=== PATIENT | female | born 1980 | race Caucasian/White ===

== ENCOUNTER 2017-02-11 03:46 | Emergency (ER) | payer OTHER ==
[2017-02-11 03:57] VITALS: BP 116/69; BMI 29.7
[2017-02-11] MEDS ORDERED: TORADOL 60 MG VIAL IM ONE (04:44)
--- NOTE | 2017-02-11 04:44 | DR.GENAD ---
HPI - PCP Primary Care Physician: Timbo RICKS - Complaint/Symptoms Chief Complaint:: SEVERE KIDNEY PAIN PT STATES," I HAVE A HISTORY OF KIDNEY STONES." Self Treatment fo Chief Complaint: TYLENOL AT 2AM - Source History Provided: Patient - Mode of Arrival Mode of Arrival: Ambulatory - Timing Onset of Chief Complaint: 02/10/17 PMH - PMH Past Medical History: Yes Past Medical History: Anxiety, Depression, Hypertension, Kidney Stones, Renal Disease Past Surgical History: Yes Surgical History: 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 Past Surgical History Comment: STENET PLACED IN KIDNEY, I AND D CYST REMOVED OFF OF OVARIES - Family History History of Family Medical Conditions: Yes Family Medical History: Diabetes Mellitus, Cancer, [place], Coronary Artery Disease, Heart Failure, Sudden Cardiac , Hypertension - Social History Does patient currently use any type of tobacco product: Yes Have you used tobacco products in the last 12 months: Yes Type of Tobacco Use: Cigarettes How many years tobacco product used: 22 Does any household member use tobacco: No Alcohol Use: None Do you use any recreational Drugs:: No Lives With: Family Lives Where: Home - infectious screening In the last 2 months have you had wt loss of >10#?: NO Have you had fever, night sweats or hemotysis?: No Have you traveled outside the country in the last 6 months?: No Isolation: Standard ROS - Review of Systems Constitutional: No Symptoms Reported Eyes: No Symptoms Reported, Eye Pain Respiratoy: No Symptoms Reported Cardiovascular: No Symptoms Reported Gastrointestinal/Abdominal: No Symptoms Reported Genitourinary: No Symptoms Reported Neurological: No Symptoms Reported Musculoskeletal: No Symptoms Reported Integumentary: No Symptoms Reported Hematologic/Lymphatic: No Symptoms Reported Endocrine: No Symptoms Reported Psychiatric: No Symptoms Reported All Other Systems: Reviewed and Negative PE - Vital Signs Vitals: Temperature 99.2 F Pulse Rate 88 Respiratory Rate 20 Blood Pressure [Right Arm] 103/60 Blood Pressure [Left Arm] 102/68 Blood Pressure [Standing] 94/64 Blood Pressure [Sitting] 85/65 Blood Pressure [Lying] 104/60 Blood Pressure 116/69 O2 Sat by Pulse Oximetry 97 - General Limitations: No Limitations General Appearance: Alert, In No Apparent Distress - Head Head Exam: Normal Inspection, Atraumatic - Eyes Eye exam: Normal Appearance, PERRL, EOMI - ENT ENT Exam: Normal Exam External Ear Exam: Normal External Inspection TM/Canal Exam: Bilateral Normal Nose Exam: Normal Nose Exam, Nasal Deviation Throat Exam: Normal Inspection - Neck Neck Exam: Normal Inspection - Chest Chest Inspection: Normal Inspection - Respiratory Respiratory Exam: Normal Lung Sounds Bilat Respiratory Exam: Bilateral Clear to Auscultation - Cardiovascular Cardiovascular Exam: Regular Rate - Abdominal Exam Abdominal Exam: Normal Inspection Abdominal Tenderness: negative: RUQ, RLQ, LUQ, LLQ, Epigastrium, Suprapubic, Diffuse, Mild, Moderate, Severe, Other Course - Reevaluation 1st: Improved ROR - Labs Reviewed Laboratory Results Reviewed?: Yes (Urine:wbc 5010, 3+leuk) - Diagnosis Discharge Problem: UTI (urinary tract infection) Qualifiers: Urinary tract infection type: acute cystitis Hematuria presence: with hematuria Qualified Code(s): N30.01 - Acute cystitis with hematuria - Discharge Plan Condition: Stable - Follow ups/Referrals Follow ups/Referrals: JOCELINE RICKS [Primary Care Provider] - 3 days - Instructions
[2017-02-11] MEDS ORDERED: TORADOL 60 MG VIAL ONE (04:52)
[2017-02-11 05:23] LABS: BILIRUBIN,URINE NEGATIVE (NEGATIVE); BLOOD/HEMOGLOBIN,URINE NEGATIVE (NEGATIVE); GLUCOSE, URINE NEGATIVE (NEGATIVE); KETONES,URINE NEGATIVE (NEGATIVE); LEUKOCYTE ESTERASE ,URINE 3+ (NEGATIVE); NITRITES,URINE NEGATIVE (NEGATIVE); PH,URINE 6.5 (5.0 - 8.0); PROTEIN,URINE 1+ (NEGATIVE); UROBILINOGEN,URINE NORMAL (NORMAL)
[2017-02-11 05:35] LABS: APPEARANCE,URINE SLIGHTLY HAZY (CLEAR); BACTERIA,URINE TRACE /HPF (NEGATIVE); COLOR,URINE YELLOW (YELLOW); RBC,URINE 0-3 /HPF (NEGATIVE); SQUAMOUS EPITHELIAL CELL,UR FEW /HPF (NEGATIVE)
[2017-02-11 05:36] LABS: CALCIUM OXALATE CRYSTALS,UR MANY /HPF (NEGATIVE)
== END 2017-02-11 06:06 | disposition home or self-care (01) ==
LOC: ER 04:02
DX: N30.01 Acute cystitis with hematuria (principal); B96.4 Proteus (mirabilis) (morganii) as the cause of diseases classified elsewhere
CPT/HCPCS: 81001; 87086; 87088; 87186; 96372; 99282; J1885

== ENCOUNTER 2017-02-17 23:13 | Emergency (ER) | payer OTHER ==
[2017-02-17 23:17] VITALS: BP 129/83; BMI 25.0
--- NOTE | 2017-02-18 | DR.RASH ---
HPI - Time Seen Time seen: 23:58 - PCP Primary Care Physician: OMID - Complaint Chief Complaint:: RASH , ITCHING FOR 3 DAYS Chief Complaint Doctors Comments: Patient complains of diffuse rash with itching for the past three days. States she has been taking Benadryl and it calms it down for a few minutes and then it comes right back. states she has not had anything new recently. She is a patient of Dr. Soler and is taking medicines for hypertension. She denies cold, cough, fever or chills. Onset of Chief Complaint: 02/14/17 Self Treatment fo Chief Complaint: BENADRYL - Reviewed Nurses Notes Review: Yes - Source History Provided: Patient - Mode of Arrival Mode of Arrival: Ambulatory - Location Location: Bilateral, Face, Chest, Back, arms, Legs, Hands, Feet - Quality Quality: Red, Pruritic - Context Circumstances: Spontaneous onset History of: None - Severity Pain Severity: Moderate - Associated signs and symptoms Associated signs and symptoms: None PMH - PMH Past Medical History: Yes Past Medical History: Anxiety, Depression, Hypertension, Kidney Stones, Renal Disease Past Surgical History: Yes Surgical History: 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 - Family History History of Family Medical Conditions: Yes Family Medical History: Diabetes Mellitus, Cancer, [place], Coronary Artery Disease, Heart Failure, Sudden Cardiac , Hypertension - Social History Type of Tobacco Use: Cigarettes Alcohol Use: None Do you use any recreational Drugs:: No Lives With: Family Lives Where: Home - infectious screening Have you traveled outside the country in the last 6 months?: No Isolation: Standard ROS - Review of Systems Constitutional: No Symptoms Reported. negative: See HPI, Chills, Diaphoresis, Fever, Malaise, Weakness, Irritable, Fatigue, Loss of Appetite, Other Eyes: No Symptoms Reported ENTM: No Symptoms Reported Respiratoy: No Symptoms Reported Cardiovascular: No Symptoms Reported. negative: See HPI, Chest Pain, Edema, Palpitations, Syncope, Cyanosis, Skin Mottling, Other Gastrointestinal/Abdominal: No Symptoms Reported Genitourinary: No Symptoms Reported Neurological: No Symptoms Reported. negative: See HPI, Anxiety, Depressed, Emotional Problems, Headache, Numbness, Paresthesia, Pre-existing Deficit, Seizure, Tingling, Tremors, Weakness, Dizziness, Problems Walking, Speech Problem, Other Musculoskeletal: No Symptoms Reported, Back (diffuse erythematous macular rash) , Arm, Leg Integumentary: Rash Hematologic/Lymphatic: No Symptoms Reported Endocrine: No Symptoms Reported Psychiatric: No Symptoms Reported PE - Vital Signs Vitals: Temperature 98.1 F Pulse Rate 100 Respiratory Rate 18 Blood Pressure [Right Arm] 103/60 Blood Pressure [Left Arm] 102/68 Blood Pressure [Standing] 94/64 Blood Pressure [Sitting] 85/65 Blood Pressure [Lying] 104/60 Blood Pressure 129/83 O2 Sat by Pulse Oximetry 95 - General Limitations: No Limitations General Appearance: In Distress (moderate distress; constantly scratching her arms.) - Head Head Exam: Normal Inspection, Atraumatic, Normocephalic - Eyes Eye exam: Normal Appearance, PERRL, EOMI. negative: Scleral Icterus, Conjunctival Injection, Nystagmus, Miosis, Mydrasis, Periorbital Swelling, Periorbital Tenderness, Other - ENT ENT Exam: Normal Exam, Normal Oropharynx, Normal External Ear Exam, Mucous Membranes Moist, TM's Normal Bilaterally External Ear Exam: Normal External Inspection TM/Canal Exam: Bilateral Normal Nasal Speculum Exam: Bilateral Normal Mouth Exam: Normal Inspection Teeth Exam: Normal Inspection Throat Exam: Normal Inspection - Neck Neck Exam: Normal Inspection, Full ROM, Trachea Midline. negative: Tenderness, Meningismus, Lymphadenopathy, Thyromegaly, Other - Chest Chest Inspection: Normal Inspection, Symmetric Chest Wall Rise - Respiratory Respiratory Exam: Normal Lung Sounds Bilat Respiratory Exam: Bilateral Clear to Auscultation - Cardiovascular Cardiovascular Exam: Regular Rate, Normal Rhythm, Normal Heart Sounds - Abdominal Exam Abdominal Exam: Normal Inspection, Normal Bowel Sounds, Soft Abdominal Tenderness: negative: RUQ, RLQ, LUQ, LLQ, Epigastrium, Suprapubic, Diffuse, Mild, Moderate, Severe, Other - Extremities Extremities Exam: Normal Inspection, Full ROM, Normal Capillary Refill. negative: Tenderness, Edema, Joint Swelling, Calf Tenderness, Other - Back Back Exam: Normal Inspection, Full ROM. negative: Tenderness, (R) CVA Tenderness, (L) CVA Tenderness, Muscle Spasm, Paraspinal Tenderness, Vertebral Tenderness, Rashes, (R) Sciatic Notch Tenderness, (L) Sciatic Notch Tendern, (R ) Straight Leg Raise, (L) Straight Leg Raise, Other - Neurologic Neurological Exam: Alert, Oriented X3, CN II-XII Intact, Normal Gait, Reflexes Normal - Psychiatric Psychiatric Exam: Normal Affect, Normal Mood - Skin Skin Exam: Warm, Dry, Intact, Normal Color, Rash (macular erythematous pruitic rash) Type of Lesion: Rash Distribution: Generalized Description: Erythematous, Macular ROR - Labs Reviewed Laboratory Results Reviewed?: Yes (all lab results reviewed and discussed with patient) Result Diagrams: 02/18/17 00:15 02/18/17 00:15 Laboratory: WBC 8.1 X10^3/uL (3.6-10.0) 02/18/17 00:15 RBC 4.21 X10^6/uL (3.5-5.4) 02/18/17 00:15 Hgb 12.4 g/dL (12.0-16.0) 02/18/17 00:15 Hct 37.3 % (36.0-47.0) 02/18/17 00:15 MCV 88.5 fL (80.0-100.0) 02/18/17 00:15 MCH 29.4 pg (27.0-34.0) 02/18/17 00:15 MCHC 33.2 g/dL (33.0-35.0) 02/18/17 00:15 RDW 13.4 % (11.6-16.5) 02/18/17 00:15 Plt Count 303 X10^3/uL (150.0-450.0) 02/18/17 00:15 MPV 7.1 fL (7.4-11.0) L 02/18/17 00:15 Neut % 56.6 % (42.0-75.0) 02/18/17 00:15 Lymph % 31.9 % (21.0-51.0) 02/18/17 00:15 [place] % 9.1 % (0.0-13.0) 02/18/17 00:15 Eos % 1.3 % (0.9-2.9) 02/18/17 00:15 Baso % 1.1 % (0.2-1.0) H 02/18/17 00:15 Neut # 4.6 x10^3/uL (2.2-4.8) 02/18/17 00:15 Lymph # 2.6 X10^3/uL (1.3-2.9) 02/18/17 00:15 [place] # 0.7 x10^3/uL (0.3-0.8) 02/18/17 00:15 Eos # 0.1 x10^3/uL (0.0-0.2) 02/18/17 00:15 Baso # 0.1 X10^3/uL (0.0-0.1) 02/18/17 00:15 Absolute Nucleated RBC 0.1 /100WBC 02/18/17 00:15 Sodium 140 mmol/L (136-145) 02/18/17 00:15 Corrected Sodium TNP 02/18/17 00:15 Potassium 3.4 mmol/L (3.5-5.1) L 02/18/17 00:15 Chloride 102 mmol/L (98-107) 02/18/17 00:15 Carbon Dioxide 22.9 mmol/L (21-32) 02/18/17 00:15 BUN 18 mg/dL (7-18) 02/18/17 00:15 Creatinine 0.98 mg/dL (0.55-1.02) 02/18/17 00:15 Est GFR (MDRD) Af Amer > 60 (>60) 02/18/17 00:15 Est GFR (MDRD) Non-Af > 60 (>60) 02/18/17 00:15 Glucose 91 mg/dL (65-99) 02/18/17 00:15 Calcium 9.0 mg/dL (8.5-10.1) 02/18/17 00:15 Corrected Calcium TNP 02/18/17 00:15 Total Bilirubin 0.40 mg/dL (0.2-1.0) 02/18/17 00:15 AST 24 Units/L (15-37) 02/18/17 00:15 ALT 39 Units/L (12-78) 02/18/17 00:15 Alkaline Phosphatase 86 Units/L (46-116) 02/18/17 00:15 Total Protein 7.7 g/dL (6.4-8.2) 02/18/17 00:15 Albumin 4.3 g/dL (3.4-5.0) 02/18/17 00:15 Globulin 3.4 g/dL (2.5-4.5) 02/18/17 00:15 Albumin/Globulin Ratio 1.3 Ratio (1.1-2.1) 02/18/17 00:15 - Diagnosis Discharge Problem: Hypokalemia, Urticaria Allergic reaction Qualifiers: Encounter type: initial encounter Qualified Code(s): T78.40XA - Allergy, unspecified, initial encounter - Discharge Plan Disposition: HOME, SELF-CARE Condition: Stable Prescriptions: Diphenhydramine HCl [BENADRYL CAP 50 MG *] 50 mg PO Q8H #30 cap Loratadine 10 mg 24-Hr Tab [LORATADINE 10 MG *] 10 mg PO DAILY #30 tab Methylprednisolone Dosepak 4Mg [MEDROL DOSEPAK (4 mg tab x 21)] 1 frank PO ONCE # 1 frank Ranitidine HCl [ZANTAC TAB 150 MG *] 150 mg PO BID #60 tab - Follow ups/Referrals Follow ups/Referrals: VICENTE SOLER [Primary Care Provider] - 3 days - Instructions
[2017-02-18] MEDS ORDERED: SOLU-MEDROL 125 MG VIAL IVP ONE (00:01)
[2017-02-18] MEDS ORDERED: BENADRYL INJ 50 MG VIAL IVP STA (00:02)
[2017-02-18] MEDS ORDERED: PEPCID 20 MG IV PREMIX* 20 MG/50 ML BAG IV ONE ×2 (00:02→00:31)
[2017-02-18 00:23] LABS: BASOPHILS # (AUTO) 0.1 X10^3/uL (0.0-0.1); BASOPHILS % (AUTO) 1.1 % (0.2-1.0); EOSINOPHILS # (AUTO) 0.1 x10^3/uL (0.0-0.2); EOSINOPHILS % (AUTO) 1.3 % (0.9-2.9); HEMATOCRIT 37.3 % (36.0-47.0); HEMOGLOBIN 12.4 g/dL (12.0-16.0); LYMPHOCYTES # (AUTO) 2.6 X10^3/uL (1.3-2.9); LYMPHOCYTES % (AUTO) 31.9 % (21.0-51.0); MEAN CORPUSCULAR HEMOGLOBIN 29.4 pg (27.0-34.0); MEAN CORPUSCULAR HGB CONC 33.2 g/dL (33.0-35.0); MEAN CORPUSCULAR VOLUME 88.5 fL (80.0-100.0); MEAN PLATELET VOLUME 7.1 fL (7.4-11.0); MONOCYTES # (AUTO) 0.7 x10^3/uL (0.3-0.8); MONOCYTES % (AUTO) 9.1 % (0.0-13.0); NEUTROPHILS # (AUTO) 4.6 x10^3/uL (2.2-4.8); NEUTROPHILS % (AUTO) 56.6 % (42.0-75.0); PLATELET COUNT 303 X10^3/uL (150.0-450.0); RED BLOOD COUNT 4.21 X10^6/uL (3.5-5.4); RED CELL DISTRIBUTION WIDTH 13.4 % (11.6-16.5); WHITE BLOOD COUNT 8.1 X10^3/uL (3.6-10.0)
[2017-02-18] MEDS ORDERED: NS 500 ML IV 500 ML IV ONE (00:31)
[2017-02-18] MEDS ORDERED: SOLU-MEDROL 125 MG VIAL ONE (00:31)
[2017-02-18] MEDS ORDERED: BENADRYL INJ 50 MG VIAL ONE (00:31)
[2017-02-18 00:32] LABS: ALANINE AMINOTRANSFERASE 39 Units/L (12-78); ALBUMIN 4.3 g/dL (3.4-5.0); ALKALINE PHOSPHATASE 86 Units/L (46-116); ASPARTATE AMINO TRANSFERASE 24 Units/L (15-37); BLOOD UREA NITROGEN 18 mg/dL (7-18); CARBON DIOXIDE 22.9 mmol/L (21-32); CHLORIDE 102 mmol/L (98-107); CREATININE 0.98 mg/dL (0.55-1.02); GLUCOSE 91 mg/dL (65-99); SODIUM 140 mmol/L (136-145); TOTAL PROTEIN 7.7 g/dL (6.4-8.2); eGFR BLACK RACES > 60 (>60); eGFR NON BLACK RACES > 60 (>60)
[2017-02-18] MEDS ORDERED: NS 500 ML IV 500 ML IV SCH (01:00)
== END 2017-02-18 02:05 | disposition home or self-care (01) ==
LOC: ER 23:21
DX: T78.40XA Allergy, unspecified, initial encounter (principal); E87.6 Hypokalemia; L50.8 Other urticaria
CPT/HCPCS: 36415; 80053; 85025; 96365; 96374; 96375; 99283; A4222; S0028; J1200; J2930

== ENCOUNTER 2017-03-03 13:38 | Emergency (ER) | payer MEDICAID, OTHER ==
[2017-03-03 13:55] VITALS: BP 103/77
[2017-03-03] MEDS ORDERED: TORADOL 60 MG VIAL IM ONE (14:12)
--- NOTE | 2017-03-03 14:13 | ED.ABDFE ---
HPI - Time seen Time seen: 14:09 - PCP Primary Care Physician: JOCELINE RICKS - Complaint Chief Complaint Doctors Comments: Patient reports that she was diagnosed with UTI on Jan and on cipro for seven days. She admits to urinary frequency of atleast ten times days daily with dysuria. She denies fever, vomiting or diarrhea. Chief Complaint:: PT STATES " I WAS DX WITH A UTI AND GIVEN CIPRO AND I AM HURTING IN MY LEFT FLANK AREA" - Source History Provided: Patient - Mode of arrival Mode of Arrival: Ambulatory - Timing Onset of Chief Complaint: 02/18/17 PMH - PMH Past Medical History: Yes Past Medical History: Anxiety, Depression, Hypertension, Kidney Stones, Renal Disease Past Surgical History: Yes Surgical History: 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, Other Past Surgical History Comment: NECK LAC SURGERY, - Family History History of Family Medical Conditions: Yes Family Medical History: Diabetes Mellitus, Cancer, [place], Coronary Artery Disease, Heart Failure, Sudden Cardiac , Hypertension - Social History Does patient currently use any type of tobacco product: Yes Have you used tobacco products in the last 12 months: Yes Type of Tobacco Use: Cigarettes How many years tobacco product used: 20 Does any household member use tobacco: No Alcohol Use: None Do you use any recreational Drugs:: No Lives With: Family Lives Where: Home - infectious screening In the last 2 months have you had wt loss of >10#?: NO Have you had fever, night sweats or hemotysis?: No Have you traveled outside the country in the last 6 months?: No Isolation: Standard ROS - Review of Systems Constitutional: No Symptoms Reported Eyes: No Symptoms Reported ENTM: No Symptoms Reported Respiratoy: No Symptoms Reported Cardiovascular: No Symptoms Reported Gastrointestinal/Abdominal: No Symptoms Reported Genitourinary: No Symptoms Reported Neurological: No Symptoms Reported Musculoskeletal: No Symptoms Reported Integumentary: No Symptoms Reported Hematologic/Lymphatic: No Symptoms Reported Endocrine: No Symptoms Reported Psychiatric: No Symptoms Reported All Other Systems: Reviewed and Negative PE - Vital Signs Vitals: Temperature 98.0 F Pulse Rate 86 Respiratory Rate 22 Blood Pressure [Right Arm] 103/60 Blood Pressure [Left Arm] 102/68 Blood Pressure [Standing] 94/64 Blood Pressure [Sitting] 85/65 Blood Pressure [Lying] 104/60 Blood Pressure 103/77 O2 Sat by Pulse Oximetry 98 - General Limitations: No Limitations General Appearance: Alert, In No Apparent Distress - Head Head Exam: Normal Inspection, Atraumatic - Eyes Eye exam: Normal Appearance, PERRL, EOMI - ENT ENT Exam: Normal Exam - Neck Neck Exam: Normal Inspection, Full ROM - Chest Chest Inspection: Normal Inspection - Respiratory Respiratory Exam: Normal Lung Sounds Bilat Respiratory Exam: Bilateral Clear to Auscultation - Cardiovascular Cardiovascular Exam: Regular Rate - Abdominal Exam Abdominal Exam: Normal Inspection Abdominal Tenderness: negative: RUQ, RLQ, LUQ, LLQ, Epigastrium, Suprapubic, Diffuse, Mild, Moderate, Severe, Other - Rectal Rectal Exam: Deferred - Back Back Exam: (L) CVA Tenderness, Paraspinal Tenderness - External Exam: Female: Deferred : Speculum Exam (Female): Deferred : Bimanual Exam (female): Deferred - Neurologic Neurological Exam: Alert, Oriented X3, CN II-XII Intact - Psychiatric Psychiatric Exam: Normal Affect, Normal Mood Course - Reevaluation 1st: Improved ROR - Labs Reviewed Laboratory Results Reviewed?: Yes (UA; negative CRP <0.5) Result Diagrams: 03/03/17 15:15 03/03/17 15:15 Laboratory: WBC 7.5 X10^3/uL (3.6-10.0) 03/03/17 15:15 RBC 5.05 X10^6/uL (3.5-5.4) 03/03/17 15:15 Hgb 15.2 g/dL (12.0-16.0) 03/03/17 15:15 Hct 45.3 % (36.0-47.0) 03/03/17 15:15 MCV 89.7 fL (80.0-100.0) 03/03/17 15:15 MCH 30.0 pg (27.0-34.0) 03/03/17 15:15 MCHC 33.5 g/dL (33.0-35.0) 03/03/17 15:15 RDW 13.6 % (11.6-16.5) 03/03/17 15:15 Plt Count 378 X10^3/uL (150.0-450.0) 03/03/17 15:15 MPV 6.7 fL (7.4-11.0) L 03/03/17 15:15 Neut % 74.9 % (42.0-75.0) 03/03/17 15:15 Lymph % 16.5 % (21.0-51.0) L 03/03/17 15:15 [place] % 7.1 % (0.0-13.0) 03/03/17 15:15 Eos % 0.9 % (0.9-2.9) 03/03/17 15:15 Baso % 0.6 % (0.2-1.0) 03/03/17 15:15 Neut # 5.6 x10^3/uL (2.2-4.8) H 03/03/17 15:15 Lymph # 1.2 X10^3/uL (1.3-2.9) L 03/03/17 15:15 [place] # 0.5 x10^3/uL (0.3-0.8) 03/03/17 15:15 Eos # 0.1 x10^3/uL (0.0-0.2) 03/03/17 15:15 Baso # 0.0 X10^3/uL (0.0-0.1) 03/03/17 15:15 Absolute Nucleated RBC 0.1 /100WBC 03/03/17 15:15 Sodium 138 mmol/L (136-145) 03/03/17 15:15 Corrected Sodium 139 mmol/L (136-145) 03/03/17 15:15 Potassium 4.2 mmol/L (3.5-5.1) 03/03/17 15:15 Chloride 101 mmol/L (98-107) 03/03/17 15:15 Carbon Dioxide 25.8 mmol/L (21-32) 03/03/17 15:15 BUN 16 mg/dL (7-18) 03/03/17 15:15 Creatinine 0.82 mg/dL (0.55-1.02) 03/03/17 15:15 Est GFR (MDRD) Af Amer > 60 (>60) 03/03/17 15:15 Est GFR (MDRD) Non-Af > 60 (>60) 03/03/17 15:15 Glucose 122 mg/dL (65-99) H 03/03/17 15:15 Calcium 9.0 mg/dL (8.5-10.1) 03/03/17 15:15 C-Reactive Protein < 0.50 mg/L (0-3.0) 03/03/17 15:15 Amylase 36 Units/L (25-115) 03/03/17 15:15 Lipase 88 Units/L (73-393) 03/03/17 15:15 Specimen Type Clean catch urine 03/03/17 14:01 Urine Color Yellow (YELLOW) 03/03/17 14:01 Urine Appearance Hazy (CLEAR) 03/03/17 14:01 Urine pH 7.0 (5.0 - 8.0) 03/03/17 14:01 Ur Specific [place] 1.010 (1.000-1.030) 03/03/17 14:01 Urine Protein 1+ (NEGATIVE) 03/03/17 14:01 Urine Glucose (UA) Negative (NEGATIVE) 03/03/17 14:01 Urine Ketones Negative (NEGATIVE) 03/03/17 14:01 Urine Occult Blood Negative (NEGATIVE) 03/03/17 14:01 Urine Nitrite Negative (NEGATIVE) 03/03/17 14:01 Urine Bilirubin Negative (NEGATIVE) 03/03/17 14:01 Urine Urobilinogen Normal (NORMAL) 03/03/17 14:01 Ur Leukocyte Esterase 1+ (NEGATIVE) 03/03/17 14:01 Urine RBC 0-2 /HPF (NEGATIVE) 03/03/17 14:01 Urine WBC 0-5 /HPF (NEGATIVE) 03/03/17 14:01 Ur Squamous Epith Cells Rare /HPF (NEGATIVE) 03/03/17 14:01 Urine Bacteria Trace /HPF (NEGATIVE) 03/03/17 14:01 Ur Culture Indicated? No/not indicated 03/03/17 14:01 - Diagnosis Discharge Problem: Abdominal pain Qualifiers: Abdominal location: left lower quadrant Qualified Code(s): R10.32 - Left lower quadrant pain - Discharge Plan Condition: Stable - Follow ups/Referrals Follow ups/Referrals: JOCELINE RICKS [Primary Care Provider] - 3 days - Instructions
[2017-03-03 14:17] LABS: BILIRUBIN,URINE NEGATIVE (NEGATIVE); BLOOD/HEMOGLOBIN,URINE NEGATIVE (NEGATIVE); GLUCOSE, URINE NEGATIVE (NEGATIVE); KETONES,URINE NEGATIVE (NEGATIVE); LEUKOCYTE ESTERASE ,URINE 1+ (NEGATIVE); NITRITES,URINE NEGATIVE (NEGATIVE); PROTEIN,URINE 1+ (NEGATIVE); UROBILINOGEN,URINE NORMAL (NORMAL)
[2017-03-03 14:31] LABS: APPEARANCE,URINE HAZY (CLEAR); COLOR,URINE YELLOW (YELLOW); RBC,URINE 0-2 /HPF (NEGATIVE)
[2017-03-03 14:32] LABS: BACTERIA,URINE TRACE /HPF (NEGATIVE); SQUAMOUS EPITHELIAL CELL,UR RARE /HPF (NEGATIVE)
[2017-03-03] MEDS ORDERED: TORADOL 60 MG VIAL ONE (14:46)
[2017-03-03 15:27] LABS: BASOPHILS % (AUTO) 0.6 % (0.2-1.0); EOSINOPHILS # (AUTO) 0.1 x10^3/uL (0.0-0.2); EOSINOPHILS % (AUTO) 0.9 % (0.9-2.9); HEMATOCRIT 45.3 % (36.0-47.0); HEMOGLOBIN 15.2 g/dL (12.0-16.0); LYMPHOCYTES # (AUTO) 1.2 X10^3/uL (1.3-2.9); LYMPHOCYTES % (AUTO) 16.5 % (21.0-51.0); MEAN CORPUSCULAR HGB CONC 33.5 g/dL (33.0-35.0); MEAN CORPUSCULAR VOLUME 89.7 fL (80.0-100.0); MEAN PLATELET VOLUME 6.7 fL (7.4-11.0); MONOCYTES # (AUTO) 0.5 x10^3/uL (0.3-0.8); MONOCYTES % (AUTO) 7.1 % (0.0-13.0); NEUTROPHILS # (AUTO) 5.6 x10^3/uL (2.2-4.8); NEUTROPHILS % (AUTO) 74.9 % (42.0-75.0); PLATELET COUNT 378 X10^3/uL (150.0-450.0); RED BLOOD COUNT 5.05 X10^6/uL (3.5-5.4); RED CELL DISTRIBUTION WIDTH 13.6 % (11.6-16.5); WHITE BLOOD COUNT 7.5 X10^3/uL (3.6-10.0)
[2017-03-03 15:36] LABS: AMYLASE 36 Units/L (25-115); BLOOD UREA NITROGEN 16 mg/dL (7-18); CARBON DIOXIDE 25.8 mmol/L (21-32); CHLORIDE 101 mmol/L (98-107); COR NA(FOR HYPERGLY) 139 mmol/L (136-145); CREATININE 0.82 mg/dL (0.55-1.02); GLUCOSE 122 mg/dL (65-99); LIPASE 88 Units/L (73-393); SODIUM 138 mmol/L (136-145); eGFR BLACK RACES > 60 (>60); eGFR NON BLACK RACES > 60 (>60)
[2017-03-03 15:37] LABS: C-REACTIVE PROTEIN < 0.50 mg/L (0-3.0)
== END 2017-03-03 16:22 | disposition home or self-care (01) ==
LOC: ER 13:59
DX: R10.32 Left lower quadrant pain (principal)
CPT/HCPCS: 36415; 80048; 81001; 82150; 83690; 85025; 86140; 96372; 99282; 99283; J1885

== ENCOUNTER 2017-06-25 15:00 | Emergency (ER) | payer MEDICAID ==
[2017-06-25 15:11] VITALS: BP 109/78; BMI 29.7
--- NOTE | 2017-06-25 16:21 | DR.GENAD ---
HPI - PCP Primary Care Physician: JOCELINE RICKS - Complaint/Symptoms Chief Complaint Doctors Comments: Patient presents with complaint of pain in both hands. She has a peripherial neuropathy treated with gabapentin. She is scheduled to see the neurologist but no appointment yet. Chief Complaint:: HURTING IN BOTH ARM AND HANDS BURNING - Source History Provided: Patient - Mode of Arrival Mode of Arrival: Ambulatory - Timing Onset of Chief Complaint: 06/22/17 PMH - PMH Past Medical History: Yes Past Medical History: Anxiety, Depression, Hypertension, Kidney Stones, Renal Disease Past Surgical History: Yes Surgical History: 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, Other - Family History History of Family Medical Conditions: Yes Family Medical History: Diabetes Mellitus, Cancer, [place], Coronary Artery Disease, Heart Failure, Sudden Cardiac , Hypertension - Social History Does patient currently use any type of tobacco product: Yes Have you used tobacco products in the last 12 months: Yes Type of Tobacco Use: Cigarettes How many years tobacco product used: 22 Does any household member use tobacco: No Alcohol Use: None Do you use any recreational Drugs:: No Lives With: Family Lives Where: Home - infectious screening In the last 2 months have you had wt loss of >10#?: NO Have you had fever, night sweats or hemotysis?: No Have you traveled outside the country in the last 6 months?: No Isolation: Standard ROS - Review of Systems Constitutional: No Symptoms Reported Eyes: No Symptoms Reported ENTM: No Symptoms Reported Respiratoy: No Symptoms Reported Cardiovascular: No Symptoms Reported Gastrointestinal/Abdominal: No Symptoms Reported Genitourinary: No Symptoms Reported Neurological: No Symptoms Reported Musculoskeletal: Hand Integumentary: No Symptoms Reported Hematologic/Lymphatic: No Symptoms Reported Endocrine: No Symptoms Reported Psychiatric: No Symptoms Reported PE - Vital Signs Vitals: Temperature 98 F Pulse Rate 100 Respiratory Rate 18 Blood Pressure [Right Arm] 103/60 Blood Pressure [Left Arm] 102/68 Blood Pressure [Standing] 94/64 Blood Pressure [Sitting] 85/65 Blood Pressure [Lying] 104/60 Blood Pressure 109/78 O2 Sat by Pulse Oximetry 98 - General Limitations: No Limitations General Appearance: Alert, In No Apparent Distress - Head Head Exam: Normal Inspection, Atraumatic - Eyes Eye exam: Normal Appearance, PERRL, EOMI - ENT ENT Exam: Normal Exam External Ear Exam: Normal External Inspection TM/Canal Exam: Bilateral Normal Nose Exam: Normal Nose Exam Mouth Exam: Normal Inspection Throat Exam: Normal Inspection - Neck Neck Exam: Normal Inspection, Full ROM - Chest Chest Inspection: Normal Inspection - Respiratory Respiratory Exam: Normal Lung Sounds Bilat Respiratory Exam: Bilateral Clear to Auscultation - Cardiovascular Cardiovascular Exam: Regular Rate, Normal Rhythm - Abdominal Exam Abdominal Exam: Normal Inspection, Normal Bowel Sounds Abdominal Tenderness: negative: RUQ, RLQ, LUQ, LLQ, Epigastrium, Suprapubic, Diffuse, Mild, Moderate, Severe, Other - Extremities Extremities Exam: Full ROM, Other (hands erythemamtous vigil surface) - Back Back Exam: Normal Inspection - Neurologic Neurological Exam: Alert, Oriented X3, CN II-XII Intact - Psychiatric Psychiatric Exam: Normal Affect - Skin Skin Exam: Warm, Dry, Intact - Diagnosis Discharge Problem: Peripheral neuralgia - Discharge Plan Condition: Stable - Follow ups/Referrals Follow ups/Referrals: JOCELINE RICKS [Primary Care Provider] - 3 days - Instructions
[2017-06-25] MEDS ORDERED: TORADOL 60 MG VIAL IM ONE (16:24)
[2017-06-25] MEDS ORDERED: TORADOL 60 MG VIAL ONE (16:26)
== END 2017-06-25 16:41 | disposition home or self-care (01) ==
LOC: ER 15:24
DX: M79.2 Neuralgia and neuritis, unspecified (principal)
CPT/HCPCS: 96372; 99282; J1885

== ENCOUNTER 2017-07-27 10:40 | Emergency (ER) | payer OTHER ==
[2017-07-27 10:47] VITALS: BP 131/90; BMI 33.5
[2017-07-27] MEDS ORDERED: ASPIRIN PO ONE (11:06)
[2017-07-27] MEDS ORDERED: PEPCID TAB 20 MG PO ONE (11:07)
--- NOTE | 2017-07-27 11:08 | DR.GENAD ---
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 STARTED WHEN SHE GOT UPSET WITH HER DAUGHTER. SHE IS TO HAVE AND IS NOT WANTING HER TO BE PRESENT HER THE OF HER GRANDCHILD. STILL UPSET IN ED. SOB PRESENT WITH SOME NAUSEA. - Complaint/Symptoms Chief Complaint Doctors Comments: CHEST PAIN, UPSET WITH FAMILY MENEBER. Chief Complaint:: CHEST PRESSURE AND ANXIETY. CRYING BECAUSE HER DAUGHTER HAS UPSET HER. Self Treatment fo Chief Complaint: PRESCRIBED MEDS - Nurses notes reviewed Nurses Notes Review: Yes - Source History Provided: Patient - Mode of Arrival Mode of Arrival: EMS - Timing Onset of Chief Complaint: 07/27/17 Came on: Suddenly - Duration Duration: Constant Duration: Hours, Days - Severity Severity: Moderate PMH - PMH Past Medical History: Yes Past Medical History: Anxiety, Depression, Hypertension, Kidney Stones, Renal Disease Past Surgical History: Yes Surgical History: 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, Other - Family History History of Family Medical Conditions: Yes Family Medical History: Diabetes Mellitus, Cancer, [place], Coronary Artery Disease, Heart Failure, Sudden Cardiac , Hypertension - Social History Does any household member use tobacco: Yes Alcohol Use: None Do you use any recreational Drugs:: No Lives With: Family Lives Where: Home - infectious screening In the last 2 months have you had wt loss of >10#?: NO Have you had fever, night sweats or hemotysis?: No Have you traveled outside the country in the last 6 months?: No Isolation: Standard ROS - Review of Systems Constitutional: Weakness, Fatigue. negative: Chills, Fever Eyes: No Symptoms Reported. negative: Eye Pain, Discharge ENTM: No Symptoms Reported. negative: Ear Pain, Nose Discharge, Nose Congestion , Throat Pain Respiratoy: No Symptoms Reported, Non-Productive Cough, Short of Breath. negative: Wheezing, Hemoptysis Cardiovascular: Chest Pain. negative: Edema Gastrointestinal/Abdominal: No Symptoms Reported. negative: Abdominal Pain, Nausea, Vomiting Genitourinary: No Symptoms Reported. negative: Dysuria, Frequency, Hematuria Neurological: Weakness. negative: Headache, Dizziness Musculoskeletal: No Symptoms Reported Integumentary: No Symptoms Reported Hematologic/Lymphatic: No Symptoms Reported Endocrine: No Symptoms Reported All Other Systems: Reviewed and Negative PE - Vital Signs Vitals: Temperature 99.0 F Pulse Rate 79 Respiratory Rate 20 Blood Pressure [Right Arm] 103/60 Blood Pressure [Left Arm] 102/68 Blood Pressure [Standing] 94/64 Blood Pressure [Sitting] 85/65 Blood Pressure [Lying] 104/60 Blood Pressure 131/90 O2 Sat by Pulse Oximetry 98 - General Limitations: No Limitations General Appearance: Alert - Head Head Exam: Normal Inspection - Eyes Eye exam: Normal Appearance - ENT ENT Exam: Normal External Ear Exam External Ear Exam: Normal External Inspection TM/Canal Exam: Bilateral Normal Nose Exam: Normal Nose Exam Mouth Exam: Normal Inspection Throat Exam: Normal Inspection - Neck Neck Exam: Normal Inspection - Chest Chest Inspection: Symmetric Chest Wall Rise - Respiratory Respiratory Exam: Normal Lung Sounds Bilat Respiratory Exam: Bilateral Clear to Auscultation - Cardiovascular Cardiovascular Exam: Regular Rate, Normal Rhythm, Normal Heart Sounds - Abdominal Exam Abdominal Exam: Normal Bowel Sounds, Soft. negative: Tenderness - Extremities Extremities Exam: Normal Inspection - Back Back Exam: Normal Inspection - Neurologic Neurological Exam: Alert, Oriented X3 - Psychiatric Psychiatric Exam: Normal Affect, Normal Mood - Skin Skin Exam: Normal Color MDM - Differential Diagnosis Differential Diagnosis: CHEST PAIN, UPSET Course - Treatment Treatment: SEE ORDERS - Education/Counseling Education/Counseling: Patient, Education Educated On: Treatment, Diagnosis ROR - Labs Reviewed Laboratory Results Reviewed?: Yes Result Diagrams: 07/27/17 11:20 07/27/17 11:20 Laboratory: WBC 5.5 X10^3/uL (3.6-10.0) 07/27/17 11:20 RBC 4.44 X10^6/uL (3.5-5.4) 07/27/17 11:20 Hgb 13.2 g/dL (12.0-16.0) 07/27/17 11:20 Hct 38.6 % (36.0-47.0) 07/27/17 11:20 MCV 86.8 fL (80.0-100.0) 07/27/17 11:20 MCH 29.7 pg (27.0-34.0) 07/27/17 11:20 MCHC 34.2 g/dL (33.0-35.0) 07/27/17 11:20 RDW 12.9 % (11.6-16.5) 07/27/17 11:20 Plt Count 241 X10^3/uL (150.0-450.0) 07/27/17 11:20 MPV 7.0 fL (7.4-11.0) L 07/27/17 11:20 Neut % 49.5 % (42.0-75.0) 07/27/17 11:20 Lymph % 35.8 % (21.0-51.0) 07/27/17 11:20 Cedar % 11.9 % (0.0-13.0) 07/27/17 11:20 Eos % 2.0 % (0.9-2.9) 07/27/17 11:20 Baso % 0.8 % (0.2-1.0) 07/27/17 11:20 Neut # 2.7 x10^3/uL (2.2-4.8) 07/27/17 11:20 Lymph # 2.0 X10^3/uL (1.3-2.9) 07/27/17 11:20 Cedar # 0.7 x10^3/uL (0.3-0.8) 07/27/17 11:20 Eos # 0.1 x10^3/uL (0.0-0.2) 07/27/17 11:20 Baso # 0.0 X10^3/uL (0.0-0.1) 07/27/17 11:20 Absolute Nucleated RBC 0.1 /100WBC 07/27/17 11:20 Sodium 140 mmol/L (136-145) 07/27/17 11:20 Corrected Sodium TNP 07/27/17 11:20 Potassium 3.6 mmol/L (3.5-5.1) 07/27/17 11:20 Chloride 104 mmol/L (98-107) 07/27/17 11:20 Carbon Dioxide 28.1 mmol/L (21-32) 07/27/17 11:20 BUN 15 mg/dL (7-18) 07/27/17 11:20 Creatinine 0.81 mg/dL (0.55-1.02) 07/27/17 11:20 Est GFR (MDRD) Af Amer > 60 (>60) 07/27/17 11:20 Est GFR (MDRD) Non-Af > 60 (>60) 07/27/17 11:20 Glucose 97 mg/dL (65-99) 07/27/17 11:20 Calcium 9.3 mg/dL (8.5-10.1) 07/27/17 11:20 Corrected Calcium TNP 07/27/17 11:20 Total Bilirubin 0.40 mg/dL (0.2-1.0) 07/27/17 11:20 AST 15 Units/L (15-37) 07/27/17 11:20 ALT 23 Units/L (12-78) 07/27/17 11:20 Alkaline Phosphatase 95 Units/L (46-116) 07/27/17 11:20 Creatine Kinase 100 Units/L (26-192) 07/27/17 11:20 CK-MB (CK-2) < 1.0 ng/mL (0-4.0) 07/27/17 11:20 CK/CKMB % Calc 1.0 % (<4) 07/27/17 11:20 Troponin I < 0.02 ng/mL (0-1.5) 07/27/17 11:20 Total Protein 7.3 g/dL (6.4-8.2) 07/27/17 11:20 Albumin 4.0 g/dL (3.4-5.0) 07/27/17 11:20 Globulin 3.3 g/dL (2.5-4.5) 07/27/17 11:20 Albumin/Globulin Ratio 1.2 Ratio (1.1-2.1) 07/27/17 11:20 - XRAY XRAY Interpreted by: Radiologist XRAY Findings: REPORT DISCUSS WITH PATIENT. - EKG Rhythm: NSR (EKG NOTED) - Diagnosis Discharge Problem: Emotional upset Chest pain Qualifiers: Chest pain type: unspecified Qualified Code(s): R07.9 - Chest pain, unspecified - Discharge Plan Disposition: 01 HOME, SELF-CARE Condition: Stable - Follow ups/Referrals Follow ups/Referrals: JOCELINE RICKS [Primary Care Provider] - 3 days - Instructions Instructions: Chest Pain Observation Additional Instructions: RETURN TO ED IF WORSE.
[2017-07-27] MEDS ORDERED: PEPCID TAB 20 MG ONE ×2 (11:09→11:12)
[2017-07-27] MEDS ORDERED: ASPIRIN ONE (11:10)
[2017-07-27 11:26] LABS: BASOPHILS % (AUTO) 0.8 % (0.2-1.0); EOSINOPHILS # (AUTO) 0.1 x10^3/uL (0.0-0.2); HEMATOCRIT 38.6 % (36.0-47.0); HEMOGLOBIN 13.2 g/dL (12.0-16.0); LYMPHOCYTES % (AUTO) 35.8 % (21.0-51.0); MEAN CORPUSCULAR HEMOGLOBIN 29.7 pg (27.0-34.0); MEAN CORPUSCULAR HGB CONC 34.2 g/dL (33.0-35.0); MEAN CORPUSCULAR VOLUME 86.8 fL (80.0-100.0); MONOCYTES # (AUTO) 0.7 x10^3/uL (0.3-0.8); MONOCYTES % (AUTO) 11.9 % (0.0-13.0); NEUTROPHILS # (AUTO) 2.7 x10^3/uL (2.2-4.8); NEUTROPHILS % (AUTO) 49.5 % (42.0-75.0); PLATELET COUNT 241 X10^3/uL (150.0-450.0); RED BLOOD COUNT 4.44 X10^6/uL (3.5-5.4); RED CELL DISTRIBUTION WIDTH 12.9 % (11.6-16.5); WHITE BLOOD COUNT 5.5 X10^3/uL (3.6-10.0)
[2017-07-27] MEDS ORDERED: ATIVAN TAB 1 MG PO ONE (11:36)
[2017-07-27 11:43] LABS: BLOOD UREA NITROGEN 15 mg/dL (7-18); CALCIUM 9.3 mg/dL (8.5-10.1); CARBON DIOXIDE 28.1 mmol/L (21-32); CHLORIDE 104 mmol/L (98-107); CREATININE 0.81 mg/dL (0.55-1.02); SODIUM 140 mmol/L (136-145); TROPONIN I < 0.02 ng/mL (0-1.5); eGFR BLACK RACES > 60 (>60); eGFR NON BLACK RACES > 60 (>60)
[2017-07-27 11:47] LABS: ALANINE AMINOTRANSFERASE 23 Units/L (12-78); ALKALINE PHOSPHATASE 95 Units/L (46-116); ASPARTATE AMINO TRANSFERASE 15 Units/L (15-37); CREATINE KINASE 100 Units/L (26-192); CREATINE KINASE MB < 1.0 ng/mL (0-4.0); TOTAL PROTEIN 7.3 g/dL (6.4-8.2)
[2017-07-27] MEDS ORDERED: ATIVAN TAB 1 MG ONE (11:50)
--- NOTE | 2017-07-27 11:59 | RAD ---
HISTORY: Chest pain. Study: Portable chest. Comparison: Chest x-ray dated September 21, 2016. Findings: The trachea is midline. The cardiac silhouette is unremarkable. The lungs are clear without focal i nfiltrate or effusion. The bony thorax is unchanged. IMPRESSION: No acute cardiopulmonary disease. Reported By:
[2017-07-27] MEDS ORDERED: VISTARIL PO ONE (12:02)
[2017-07-27] MEDS: VISTARIL PO ONE ×2 (12:03→12:04)
== END 2017-07-27 13:10 | disposition home or self-care (01) ==
LOC: ER 10:42
DX: R07.89 Other chest pain (principal); R45.89 Other symptoms and signs involving emotional state
CPT/HCPCS: 36415; 71010; 80053; 82550; 82553; 84484; 85025; 93005; 93010; 99283; Q0177

== ENCOUNTER 2017-08-13 06:02 | Emergency (ER) | payer OTHER ==
[2017-08-13 06:08] VITALS: BP 101/69; BMI 32.1
--- NOTE | 2017-08-13 06:59 | DR.GENAD ---
HPI - Complaint/Symptoms Chief Complaint:: PT STATES THAT SHE HAS HAD A FEVER, COUGHING, CONGESTION, STUFFY NOSE, HEADACHE. ONSET 2 DAYS. 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, Other - Family History History of Family Medical Conditions: Yes Family Medical History: Diabetes Mellitus, Cancer, [place], Coronary Artery Disease, Heart Failure, Hypertension - Social History Do you use any recreational Drugs:: No - infectious screening Have you traveled outside the country in the last 6 months?: No ROS - Review of Systems Eyes: No Symptoms Reported ENTM: No Symptoms Reported Respiratoy: Dry Cough, Wheezing (right posterior lobe) Cardiovascular: No Symptoms Reported Gastrointestinal/Abdominal: No Symptoms Reported Genitourinary: No Symptoms Reported Neurological: No Symptoms Reported Musculoskeletal: No Symptoms Reported Integumentary: No Symptoms Reported Hematologic/Lymphatic: No Symptoms Reported Endocrine: No Symptoms Reported Psychiatric: No Symptoms Reported All Other Systems: Reviewed and Negative PE - Vital Signs Vitals: Temperature 97.8 F Pulse Rate 85 Respiratory Rate 18 Blood Pressure [Right Arm] 103/60 Blood Pressure [Left Arm] 102/68 Blood Pressure [Standing] 94/64 Blood Pressure [Sitting] 85/65 Blood Pressure [Lying] 104/60 Blood Pressure 101/69 O2 Sat by Pulse Oximetry 100 - General Limitations: No Limitations General Appearance: Alert - Head Head Exam: Normal Inspection, Atraumatic - Eyes Eye exam: EOMI - ENT ENT Exam: Normal Exam External Ear Exam: Normal External Inspection TM/Canal Exam: Bilateral Normal Nose Exam: Normal Nose Exam Mouth Exam: Normal Inspection Throat Exam: Normal Inspection - Neck Neck Exam: Normal Inspection - Chest Chest Inspection: Normal Inspection - Respiratory Respiratory Exam: Normal Lung Sounds Bilat Respiratory Exam: Bilateral Clear to Auscultation - Cardiovascular Cardiovascular Exam: Regular Rate, Normal Rhythm - Abdominal Exam Abdominal Exam: Normal Inspection Abdominal Tenderness: negative: RUQ, RLQ, LUQ, LLQ, Epigastrium, Suprapubic, Diffuse, Mild, Moderate, Severe, Other - Back Back Exam: Normal Inspection, Full ROM - Neurologic Neurological Exam: Alert, Oriented X3, CN II-XII Intact - Psychiatric Psychiatric Exam: Normal Affect - Skin Skin Exam: Warm, Dry, Intact ROR - XRAY XRAY Interpreted by: Radiologist (chest: No acute cardiopulmonary disease) - Diagnosis Discharge Problem: Upper respiratory disease - Discharge Plan Condition: Stable - Follow ups/Referrals Follow ups/Referrals: JOCELINE RICKS [Primary Care Provider] - 3 days - Instructions
[2017-08-13] MEDS ORDERED: DUONEB 0.5 MG/3 MG NEB SCH (07:00)
[2017-08-13] MEDS ORDERED: DUONEB 0.5 MG/3 MG ONE (07:00)
--- NOTE | 2017-08-13 07:20 | RAD ---
HISTORY: Cough and wheezing Study: Single view of the chest. Comparison: 07/27/2017 Findings: The cardiomediastinal silhouette is normal. No focal consolidations, pleural effusions or pneumothora x. Old right rib fractures. IMPRESSION: 1. No acute cardiopulmonary process. Reported By:
== END 2017-08-13 07:46 | disposition home or self-care (01) ==
LOC: ER 06:02
DX: J06.9 Acute upper respiratory infection, unspecified (principal)
CPT/HCPCS: 71010; 99282; 99283; J7620

== ENCOUNTER 2017-08-18 06:57 | Emergency (ER) | payer OTHER ==
[2017-08-18 07:07] VITALS: BP 110/65; BMI 32.1
--- NOTE | 2017-08-18 07:14 | DR.GENAD ---
HPI - PCP Primary Care Physician: Dana - Complaint/Symptoms Chief Complaint Doctors Comments: Patient was seen on last week for acute respiratory problems cleared with neb treatments. She presents with complain of cough and headache. She denies fever, vomiting or diarrhea. Chief Complaint:: "For about 2 weeks I have been running a fever and I have been feeling really weak. I have been coughing really bad and throwing up. I don 't know if I have a migraine now from coughing so much or what. 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, Other - Family History History of Family Medical Conditions: Yes Family Medical History: Diabetes Mellitus, Cancer, [place], Coronary Artery Disease, Heart Failure, Hypertension - Social History Does patient currently use any type of tobacco product: Yes Have you used tobacco products in the last 12 months: Yes Type of Tobacco Use: Cigarettes Does any household member use tobacco: Yes Alcohol Use: None Do you use any recreational Drugs:: No Lives With: Family Lives Where: Home - infectious screening In the last 2 months have you had wt loss of >10#?: NO Have you had fever, night sweats or hemotysis?: No Have you traveled outside the country in the last 6 months?: No Isolation: Standard ROS - Review of Systems Eyes: No Symptoms Reported ENTM: No Symptoms Reported Respiratoy: No Symptoms Reported Cardiovascular: No Symptoms Reported Gastrointestinal/Abdominal: No Symptoms Reported Genitourinary: No Symptoms Reported Neurological: No Symptoms Reported Musculoskeletal: No Symptoms Reported Integumentary: No Symptoms Reported Hematologic/Lymphatic: No Symptoms Reported Endocrine: No Symptoms Reported Psychiatric: No Symptoms Reported All Other Systems: Reviewed and Negative PE - Vital Signs Vitals: Temperature 97.6 F Pulse Rate 83 Respiratory Rate 18 Blood Pressure [Right Arm] 103/60 Blood Pressure [Left Arm] 102/68 Blood Pressure [Standing] 94/64 Blood Pressure [Sitting] 85/65 Blood Pressure [Lying] 104/60 Blood Pressure 110/65 O2 Sat by Pulse Oximetry 96 - General Limitations: No Limitations General Appearance: Alert - Head Head Exam: Normal Inspection, Atraumatic - Eyes Eye exam: Normal Appearance, PERRL, EOMI - ENT ENT Exam: Normal Exam External Ear Exam: Normal External Inspection TM/Canal Exam: Bilateral Normal Nose Exam: Normal Nose Exam, Sinus Tenderness Mouth Exam: Normal Inspection Throat Exam: Normal Inspection - Neck Neck Exam: Normal Inspection, Full ROM - Chest Chest Inspection: Normal Inspection, Symmetric Chest Wall Rise - Respiratory Respiratory Exam: Normal Lung Sounds Bilat Respiratory Exam: Bilateral Clear to Auscultation - Cardiovascular Cardiovascular Exam: Regular Rate, Normal Rhythm - Abdominal Exam Abdominal Exam: Normal Inspection Abdominal Tenderness: negative: RUQ, RLQ, LUQ, LLQ, Epigastrium, Suprapubic, Diffuse, Mild, Moderate, Severe, Other - Extremities Extremities Exam: Normal Inspection, Full ROM - Back Back Exam: Normal Inspection, Full ROM - Neurologic Neurological Exam: Alert, Oriented X3, CN II-XII Intact - Skin Skin Exam: Warm, Dry, Intact - Diagnosis Discharge Problem: Upper respiratory infection Qualifiers: URI type: unspecified viral URI Qualified Code(s): J06.9 - Acute upper respiratory infection, unspecified; B97.89 - Other viral agents as the cause of diseases classified elsewhere Headache Qualifiers: Headache type: unspecified Headache chronicity pattern: acute headache Intractability: not intractable Qualified Code(s): R51 - Headache - Discharge Plan Condition: Stable - Follow ups/Referrals Follow ups/Referrals: JOCELINE RICKS [Primary Care Provider] - 3 days - Instructions
[2017-08-18] MEDS ORDERED: TORADOL 60 MG VIAL IM ONE (07:16)
[2017-08-18] MEDS ORDERED: TORADOL 60 MG VIAL ONE (07:20)
== END 2017-08-18 07:42 | disposition home or self-care (01) ==
LOC: ER 06:57
DX: J06.9 Acute upper respiratory infection, unspecified (principal); R51 Headache
CPT/HCPCS: 96372; 99282; J1885

== ENCOUNTER 2017-08-23 12:16 | Inpatient (IN) | payer OTHER ==
--- NOTE | 2017-08-23 13:03 | DR.H&P ---
H&P - History & Physical for Day of: H&P Date: 08/23/17 - Chief Complaint Chief Complaint: FEVER, CCC, WEAKNESS - Allergies Allergies/Adverse Reactions: Allergies Allergy/AdvReac Type Severity Reaction Status Date / Time codeine Allergy Verified 07/27/17 10:49 prochlorperazine Allergy Verified 07/27/17 10:49 - History of Present Illness History of Present Illness: 37 WF DIRECT ADMIT FROM DR HENDRIX OFFICE WITH CCC AND BRONCHITIS, patient was seen in the ER for same symptoms approximately 1 week ago. Patient was treated with a Z-Giuliano without improvement. Patient continues complaining of diffuse body aches and low-grade fever as well as cough cold congestion and wheezing. Plan to admit patient for pneumonia protocol IV antibiotics and respiratory therapy. 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 - Family History Family Medical History: Diabetes Mellitus, Cancer, [place], Coronary Artery Disease, Heart Failure, Hypertension - Social History Does patient currently use any type of tobacco product: Yes Have you used tobacco products in the last 12 months: Yes Type of Tobacco Use: Cigarettes Does any household member use tobacco: No Alcohol Use: None Drug Use: None - Review of Systems Constitutional: Fever, Chills, Weakness Eyes: No Symptoms Reported ENT: No Symptoms Reported Respiratory: Shortness of Breath, SOB with Excertion, Wheezing Cardiovascular: No Symptoms Reported Gastrointestinal: Nausea Genitourinary: No Symptoms Reported Musculoskeletal: Back Pain, Leg Pain Skin: No Symptoms Reported Neurological: No Symptoms Reported - Physical Exam Vital Signs: Blood Pressure [Right Arm] 103/60 Blood Pressure [Left Arm] 102/68 Blood Pressure [Standing] 94/64 Blood Pressure [Sitting] 85/65 Blood Pressure [Lying] 104/60 Blood Pressure 110/65 Oriented: Normal Eyes: Normal Ear: Normal Nose: Normal Throat: Dry Respiratory: Rhonchi Throughout, RLL Exp. Wheeze, LLL Exp. Wheeze Cardiovascular: Normal : Normal Auscultation: Bowel Sounds: Normal Palpation: Normal Tenderness: Epigastric Skin: Normal Musculoskeletal: Wrist, Back:Lumbar Psychiatric: Normal Speech Pattern: Clear, Appropriate - Assessment/Plan (1) Acute bronchitis Status: Acute Plan: ADMIT FOR IV ATBX, RESP THERAPY. BLOOD AND SPUTUM CULTURES
[2017-08-23] MEDS ORDERED: NS 1/2 1000 ML IV 1,000 ML IV ONE (13:59)
[2017-08-23] MEDS ORDERED: SALINE 3% 15 ML NEB TX ONE (14:08)
[2017-08-23] MEDS ORDERED: SALINE 3% 15 ML NEB TX NEB ONE (14:09)
[2017-08-23] MEDS: NS 1/2 1000 ML IV 1,000 ML IV SCH (14:14)
[2017-08-23] MEDS: ZOSYN VIAL 4.5 GM 4.5 GM in NS 100 ML IV + SPIKE MINIBAG* 100 ML IV SCH ×2 (14:14→21:18)
[2017-08-23] MEDS: SOLU-Medrol 125 MG VIAL IVP SCH ×3 (14:15→21:18)
[2017-08-23] MEDS: ROBITUSSIN DM PO SCH ×3 (14:16→20:10)
[2017-08-23] MEDS: PEPCID 20 MG IV PREMIX* 20 MG/50 ML BAG IV SCH (14:18)
[2017-08-23 14:47] LABS: BASOPHILS % (AUTO) 0.5 % (0.2-1.0); EOSINOPHILS % (AUTO) 0.7 % (0.9-2.9); HEMATOCRIT 39.8 % (36.0-47.0); HEMOGLOBIN 13.4 g/dL (12.0-16.0); LYMPHOCYTES % (AUTO) 33.4 % (21.0-51.0); MEAN CORPUSCULAR HEMOGLOBIN 29.4 pg (27.0-34.0); MEAN CORPUSCULAR HGB CONC 33.6 g/dL (33.0-35.0); MEAN CORPUSCULAR VOLUME 87.5 fL (80.0-100.0); MEAN PLATELET VOLUME 7.1 fL (7.4-11.0); MONOCYTES # (AUTO) 0.5 x10^3/uL (0.3-0.8); MONOCYTES % (AUTO) 8.5 % (0.0-13.0); NEUTROPHILS # (AUTO) 3.4 x10^3/uL (2.2-4.8); NEUTROPHILS % (AUTO) 56.9 % (42.0-75.0); PLATELET COUNT 417 X10^3/uL (150.0-450.0); RED BLOOD COUNT 4.54 X10^6/uL (3.5-5.4)
[2017-08-23 15:01] LABS: ALANINE AMINOTRANSFERASE 56 Units/L (12-78); ALBUMIN 3.9 g/dL (3.4-5.0); ALKALINE PHOSPHATASE 85 Units/L (46-116); ASPARTATE AMINO TRANSFERASE 11 Units/L (15-37); BLOOD UREA NITROGEN 10 mg/dL (7-18); CALCIUM 8.8 mg/dL (8.5-10.1); CHLORIDE 104 mmol/L (98-107); SODIUM 139 mmol/L (136-145); eGFR BLACK RACES > 60 (>60); eGFR NON BLACK RACES > 60 (>60)
[2017-08-23 15:11] VITALS: BMI 27.4
[2017-08-23] MEDS ORDERED: PREVNAR 13 IM ONE (15:13)
[2017-08-23] MEDS ORDERED: FLUVIRIN IM ONE (15:13)
[2017-08-23] MEDS ORDERED: DUONEB 0.5 MG/3 MG ONE (16:18)
[2017-08-23] MEDS: DUONEB 0.5 MG/3 MG NEB SCH ×2 (16:35→20:29)
[2017-08-23] MEDS: TUSSIONEX PENNKINETIC SUSP PO PRN (17:53)
[2017-08-23] MEDS: NICOTINE PATCH TD SCH (18:38)
[2017-08-23] MEDS: ULTRAM PO PRN (20:09)
[2017-08-23] MEDS: NEURONTIN CAP 400 MG PO SCH (20:10)
[2017-08-23] MEDS: PHENERGAN TAB 25 MG PO PRN (20:14)
[2017-08-23] MEDS: PULMICORT NEB TX 0.5 MG NEB SCH (20:29)
[2017-08-24] MEDS: DUONEB 0.5 MG/3 MG NEB SCH ×6 (00:33→20:35)
[2017-08-24] MEDS: ULTRAM PO PRN ×3 (01:48→20:17)
[2017-08-24] MEDS: PHENERGAN TAB 25 MG PO PRN ×2 (01:49→20:18)
[2017-08-24] MEDS ORDERED: ZOSYN VIAL 4.5 GM IV ONE (04:50)
[2017-08-24] MEDS ORDERED: SOLU-Medrol 125 MG VIAL ONE (04:50)
[2017-08-24] MEDS: NS 1/2 1000 ML IV 1,000 ML IV SCH ×2 (04:53→20:16)
[2017-08-24] MEDS: SOLU-Medrol 125 MG VIAL IVP SCH (05:12)
[2017-08-24] MEDS: ZOSYN VIAL 4.5 GM 4.5 GM in NS 100 ML IV + SPIKE MINIBAG* 100 ML IV SCH ×3 (05:13→22:00)
--- NOTE | 2017-08-24 06:59 | RAD ---
HISTORY: Cough Study: Chest PA and lateral Comparison: 08/13/2017 Findings: The trachea is midline. The cardiac silhouette is unremarkable. The lungs are clear without focal i nfiltrate or effusion. The bony thorax is unremarkable. IMPRESSION: 1. No acute cardiopulmonary disease. Reported By:
[2017-08-24] MEDS: PULMICORT NEB TX 0.5 MG NEB SCH ×2 (08:30→20:35)
[2017-08-24] MEDS: PAXIL PO SCH (08:59)
[2017-08-24] MEDS: NEURONTIN CAP 400 MG PO SCH ×4 (08:59→20:17)
[2017-08-24] MEDS: ROBITUSSIN DM PO SCH ×4 (08:59→20:16)
[2017-08-24] MEDS: PEPCID 20 MG IV PREMIX* 20 MG/50 ML BAG IV SCH (08:59)
[2017-08-24] MEDS: NORVASC TAB 10 MG PO SCH (08:59)
[2017-08-24] MEDS: LEVAQUIN PREMIX IV 750 MG 750 MG/150 ML BAG IV SCH (08:59)
[2017-08-24] MEDS: PROTONIX TAB 40 MG PO SCH (08:59)
[2017-08-24] MEDS: MICRO K EXTEN CAP 10 MEQ PO SCH (08:59)
[2017-08-24 09:05] LABS: BASOPHILS # (AUTO) 0.1 X10^3/uL (0.0-0.1); BASOPHILS % (AUTO) 0.5 % (0.2-1.0); HEMATOCRIT 36.8 % (36.0-47.0); HEMOGLOBIN 12.3 g/dL (12.0-16.0); LYMPHOCYTES # (AUTO) 0.7 X10^3/uL (1.3-2.9); LYMPHOCYTES % (AUTO) 6.7 % (21.0-51.0); MEAN CORPUSCULAR HEMOGLOBIN 29.4 pg (27.0-34.0); MEAN CORPUSCULAR HGB CONC 33.5 g/dL (33.0-35.0); MEAN PLATELET VOLUME 7.3 fL (7.4-11.0); MONOCYTES # (AUTO) 0.2 x10^3/uL (0.3-0.8); MONOCYTES % (AUTO) 1.7 % (0.0-13.0); NEUTROPHILS # (AUTO) 9.5 x10^3/uL (2.2-4.8); NEUTROPHILS % (AUTO) 91.1 % (42.0-75.0); PLATELET COUNT 394 X10^3/uL (150.0-450.0); RED BLOOD COUNT 4.18 X10^6/uL (3.5-5.4); RED CELL DISTRIBUTION WIDTH 13.1 % (11.6-16.5); WHITE BLOOD COUNT 10.4 X10^3/uL (3.6-10.0)
[2017-08-24] MEDS: NICOTINE PATCH TD SCH (09:07)
[2017-08-24] MEDS: WELLBUTRIN XL 150 MG (DAILY) PO SCH (09:07)
[2017-08-24 09:12] LABS: ALANINE AMINOTRANSFERASE 44 Units/L (12-78); ALBUMIN 3.5 g/dL (3.4-5.0); ALKALINE PHOSPHATASE 83 Units/L (46-116); ASPARTATE AMINO TRANSFERASE 7 Units/L (15-37); BLOOD UREA NITROGEN 10 mg/dL (7-18); CALCIUM 8.7 mg/dL (8.5-10.1); CARBON DIOXIDE 22.8 mmol/L (21-32); CHLORIDE 107 mmol/L (98-107); COR NA(FOR HYPERGLY) 144 mmol/L (136-145); CREATININE 1.03 mg/dL (0.55-1.02); SODIUM 141 mmol/L (136-145); TOTAL PROTEIN 6.6 g/dL (6.4-8.2); eGFR BLACK RACES > 60 (>60); eGFR NON BLACK RACES > 60 (>60)
[2017-08-24 09:24] LABS: PLATELET MORPHOLOGY COMMENT NORMAL (NORMAL)
[2017-08-24] MEDS ORDERED: NORCO 7.5/325 MG TAB ONE (10:41)
[2017-08-24] MEDS ORDERED: NORCO 7.5/325 MG TAB PO ONE (10:48)
[2017-08-24] MEDS: TORADOL 15 MG VIAL IVP PRN (14:47)
[2017-08-24] MEDS ORDERED: NS 1/2 1000 ML IV 1,000 ML IV ONE (20:09)
[2017-08-25] MEDS: DUONEB 0.5 MG/3 MG NEB SCH ×3 (01:02→09:00)
[2017-08-25] MEDS: TORADOL 15 MG VIAL IVP PRN (04:27)
[2017-08-25] MEDS: ZOSYN VIAL 4.5 GM 4.5 GM in NS 100 ML IV + SPIKE MINIBAG* 100 ML IV SCH (06:05)
[2017-08-25 06:21] LABS: BASOPHILS % (AUTO) 0.3 % (0.2-1.0); HEMATOCRIT 35.9 % (36.0-47.0); HEMOGLOBIN 11.8 g/dL (12.0-16.0); LYMPHOCYTES # (AUTO) 2.4 X10^3/uL (1.3-2.9); LYMPHOCYTES % (AUTO) 19.2 % (21.0-51.0); MEAN CORPUSCULAR HEMOGLOBIN 29.2 pg (27.0-34.0); MEAN CORPUSCULAR HGB CONC 32.8 g/dL (33.0-35.0); MEAN PLATELET VOLUME 7.6 fL (7.4-11.0); MONOCYTES # (AUTO) 0.8 x10^3/uL (0.3-0.8); MONOCYTES % (AUTO) 6.2 % (0.0-13.0); NEUTROPHILS # (AUTO) 9.4 x10^3/uL (2.2-4.8); NEUTROPHILS % (AUTO) 74.3 % (42.0-75.0); PLATELET COUNT 385 X10^3/uL (150.0-450.0); RED BLOOD COUNT 4.04 X10^6/uL (3.5-5.4); RED CELL DISTRIBUTION WIDTH 13.5 % (11.6-16.5); WHITE BLOOD COUNT 12.7 X10^3/uL (3.6-10.0)
[2017-08-25 06:22] LABS: ALANINE AMINOTRANSFERASE 42 Units/L (12-78); ALBUMIN 3.4 g/dL (3.4-5.0); ALKALINE PHOSPHATASE 85 Units/L (46-116); ASPARTATE AMINO TRANSFERASE 8 Units/L (15-37); BLOOD UREA NITROGEN 13 mg/dL (7-18); CALCIUM 8.4 mg/dL (8.5-10.1); CHLORIDE 109 mmol/L (98-107); COR NA(FOR HYPERGLY) 146 mmol/L (136-145); CREATININE 0.93 mg/dL (0.55-1.02); SODIUM 145 mmol/L (136-145); TOTAL PROTEIN 6.5 g/dL (6.4-8.2); eGFR BLACK RACES > 60 (>60); eGFR NON BLACK RACES > 60 (>60)
[2017-08-25] MEDS ORDERED: POTASSIUM CHLORIDE LIQ 20 MEQ UDC PO PRN (06:33)
[2017-08-25] MEDS ORDERED: K-DUR TAB 20 MEQ PO PRN (06:33)
[2017-08-25] MEDS ORDERED: K-RIDER 10 MEQ/NS 100 ML 10 MEQ/100 ML BAG IV PRN (06:33)
[2017-08-25] MEDS ORDERED: K-LYTE EFFERVESCENT PO PRN (06:33)
[2017-08-25] MEDS: TUSSIONEX PENNKINETIC SUSP PO PRN (06:41)
[2017-08-25] MEDS: NICOTINE PATCH TD SCH (08:23)
[2017-08-25] MEDS: WELLBUTRIN XL 150 MG (DAILY) PO SCH (08:25)
[2017-08-25] MEDS: PROTONIX TAB 40 MG PO SCH (08:26)
[2017-08-25] MEDS: PAXIL PO SCH (08:26)
[2017-08-25] MEDS: ROBITUSSIN DM PO SCH (08:26)
[2017-08-25] MEDS: NEURONTIN CAP 400 MG PO SCH (08:26)
[2017-08-25] MEDS: LEVAQUIN PREMIX IV 750 MG 750 MG/150 ML BAG IV SCH (08:27)
[2017-08-25] MEDS: NORVASC TAB 10 MG PO SCH (08:27)
[2017-08-25] MEDS: PEPCID 20 MG IV PREMIX* 20 MG/50 ML BAG IV SCH (08:27)
[2017-08-25] MEDS: MICRO K EXTEN CAP 10 MEQ PO SCH (08:27)
[2017-08-25] MEDS: PULMICORT NEB TX 0.5 MG NEB SCH (08:59)
[2017-08-25 09:48] VITALS: BP 117/70
[2017-08-25] MEDS: PHENERGAN TAB 25 MG PO PRN (09:53)
== END 2017-08-25 11:00 | disposition home or self-care (01) | DRG 195 ==
LOC: ICU 12:16
PROVIDERS: ADMIT Internal Medicine; ATTEND Internal Medicine
DX: J18.0 Bronchopneumonia, unspecified organism (principal); J20.8 Acute bronchitis due to other specified organisms; F32.89 Other specified depressive episodes; K21.9 Gastro-esophageal reflux disease without esophagitis; F41.8 Other specified anxiety disorders; M15.8 Other polyosteoarthritis
CPT/HCPCS: 36415; 71020; 80053; 84132; 85025; 87040; 87070; 87205; 90686; 94640; A4222; Q0169; S0028; S0106; 90670; J1956; J2543; J2930; J7620; J7626

== ENCOUNTER 2017-11-15 16:36 | Emergency (ER) | payer OTHER ==
[2017-11-15 16:43] VITALS: BP 158/101; BMI 29.2
--- NOTE | 2017-11-15 17:33 | DR.GENAD ---
HPI - PCP Primary Care Physician: RAMBO - Complaint/Symptoms Chief Complaint Doctors Comments: Patient states that she has had a migraine for past two days and otc medication is not helping. She denies vomitng or diarrhea. She admits to a throbbing fronting headach. sharp and severe. Chief Complaint:: PT C/O JAKEAINE THAT SHE HAS HAD X4 DAYS. 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 - Family History History of Family Medical Conditions: Yes Family Medical History: Diabetes Mellitus, Cancer, [place], Coronary Artery Disease, Heart Failure, Hypertension - Social History Does patient currently use any type of tobacco product: Yes Have you used tobacco products in the last 12 months: Yes Type of Tobacco Use: Cigarettes Does any household member use tobacco: Yes Alcohol Use: None Do you use any recreational Drugs:: No Lives With: Family Lives Where: Home - infectious screening In the last 2 months have you had wt loss of >10#?: NO Have you had fever, night sweats or hemotysis?: No Have you traveled outside the country in the last 6 months?: No Isolation: Standard ROS - Review of Systems Eyes: No Symptoms Reported ENTM: No Symptoms Reported Respiratoy: No Symptoms Reported Cardiovascular: No Symptoms Reported Gastrointestinal/Abdominal: No Symptoms Reported Genitourinary: No Symptoms Reported Neurological: Headache Musculoskeletal: No Symptoms Reported Integumentary: No Symptoms Reported Hematologic/Lymphatic: No Symptoms Reported Endocrine: No Symptoms Reported Psychiatric: No Symptoms Reported All Other Systems: Reviewed and Negative PE - Vital Signs Vitals: Temperature 97.2 F Pulse Rate 86 Respiratory Rate 18 Blood Pressure [Right Arm] 116/67 Blood Pressure [Left Arm] 117/70 Blood Pressure [Standing] 94/64 Blood Pressure [Sitting] 85/65 Blood Pressure [Lying] 104/60 Blood Pressure 158/101 O2 Sat by Pulse Oximetry 95 - General General Appearance: Alert, In No Apparent Distress - Head Head Exam: Normal Inspection, Atraumatic - Eyes Eye exam: Normal Appearance, PERRL, EOMI - ENT ENT Exam: Normal Exam External Ear Exam: Normal External Inspection TM/Canal Exam: Bilateral Normal Nose Exam: Normal Nose Exam Mouth Exam: Normal Inspection Throat Exam: Normal Inspection - Neck Neck Exam: Normal Inspection, Full ROM - Chest Chest Inspection: Normal Inspection - Respiratory Respiratory Exam: Normal Lung Sounds Bilat Respiratory Exam: Bilateral Clear to Auscultation - Cardiovascular Cardiovascular Exam: Regular Rate, Normal Rhythm - Abdominal Exam Abdominal Exam: Normal Inspection Abdominal Tenderness: negative: RUQ, RLQ, LUQ, LLQ, Epigastrium, Suprapubic, Diffuse, Mild, Moderate, Severe, Other - Extremities Extremities Exam: Normal Inspection, Full ROM - Back Back Exam: Normal Inspection - Neurologic Neurological Exam: Alert, Oriented X3, CN II-XII Intact - Psychiatric Psychiatric Exam: Normal Affect, Depressed - Skin Skin Exam: Warm, Dry, Intact Course - Reevaluation 1st: Improved - Diagnosis Discharge Problem: Migraine headache Qualifiers: Migraine type: unspecified Status migrainosus presence: without status migrainosus Intractability: not intractable Qualified Code(s): G43.909 - Migraine, unspecified, not intractable, without status migrainosus - Discharge Plan Disposition: 07 AGAINST MEDICAL ADVICE Condition: Stable - Follow ups/Referrals Follow ups/Referrals: JOCELINE RICKS [Primary Care Provider] - 3 days - Instructions
[2017-11-15] MEDS ORDERED: NS 1000 ML 500 ML IV ONE (17:37)
[2017-11-15] MEDS ORDERED: ZOFRAN INJ 4 MG VIAL IVP ONE (17:38)
[2017-11-15] MEDS ORDERED: DECADRON INJ IM ONE (17:38)
[2017-11-15] MEDS ORDERED: NS 1000 ML 1,000 ML ONE (17:38)
[2017-11-15] MEDS ORDERED: TORADOL 30 MG VIAL IVP ONE (17:38)
[2017-11-15] MEDS ORDERED: TORADOL 30 MG VIAL ONE (17:39)
[2017-11-15] MEDS ORDERED: DECADRON INJ ONE (17:39)
[2017-11-15] MEDS ORDERED: ZOFRAN INJ 4 MG VIAL ONE (17:39)
== END 2017-11-15 19:00 | disposition left against medical advice (07) ==
LOC: ER 16:45
DX: G43.909 Migraine, unspecified, not intractable, without status migrainosus (principal)
CPT/HCPCS: 96365; 96367; 96374; 96375; 99282; 99283; A4222; J1100; J1885; J2405

== ENCOUNTER 2017-12-01 14:35 | Emergency (ER) | payer MEDICAID, OTHER ==
[2017-12-01 14:40] VITALS: BP 124/70; BMI 28.3
--- NOTE | 2017-12-01 15:08 | DR.GENAD ---
HPI - PCP Primary Care Physician: JOCELINE RICKS - HPI Comment HPI Comment: REDNESS INCREASING. NO FEVER. - Complaint/Symptoms Chief Complaint Doctors Comments: RIGHT FOREARM RED AND SWOLLEN. Chief Complaint:: PATIENT HAS RIGHT ARM PAIN. THE AREA AROUND THE WRIST IS RED AND SWOLLEN. IT IS VERY PAINFUL. STARTED YESTERDAY OUT OF NO WHERE. 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, Other - Family History History of Family Medical Conditions: Yes Family Medical History: Diabetes Mellitus, Cancer, [place], Coronary Artery Disease, Heart Failure, Hypertension - Social History Does patient currently use any type of tobacco product: Yes Have you used tobacco products in the last 12 months: Yes Type of Tobacco Use: Cigarettes Does any household member use tobacco: No Alcohol Use: None Do you use any recreational Drugs:: No Lives With: Family Lives Where: Home - infectious screening In the last 2 months have you had wt loss of >10#?: NO Have you had fever, night sweats or hemotysis?: No Have you traveled outside the country in the last 6 months?: No Isolation: Standard ROS - Review of Systems Constitutional: No Symptoms Reported Eyes: No Symptoms Reported ENTM: No Symptoms Reported Respiratoy: No Symptoms Reported Cardiovascular: No Symptoms Reported Gastrointestinal/Abdominal: No Symptoms Reported Genitourinary: No Symptoms Reported Neurological: No Symptoms Reported Musculoskeletal: Right, Forearm Integumentary: Change in Color (SWELLING AND REDNESS.) Hematologic/Lymphatic: No Symptoms Reported Endocrine: No Symptoms Reported All Other Systems: Reviewed and Negative PE - Vital Signs Vitals: Temperature 97.6 F Pulse Rate 98 Respiratory Rate 20 Blood Pressure [Right Arm] 116/67 Blood Pressure [Left Arm] 117/70 Blood Pressure [Standing] 94/64 Blood Pressure [Sitting] 85/65 Blood Pressure [Lying] 104/60 Blood Pressure 124/70 O2 Sat by Pulse Oximetry 99 - General Limitations: No Limitations General Appearance: Alert - Head Head Exam: Normal Inspection - Eyes Eye exam: Normal Appearance - ENT ENT Exam: Normal External Ear Exam External Ear Exam: Normal External Inspection TM/Canal Exam: Bilateral Normal Nose Exam: Normal Nose Exam Mouth Exam: Normal Inspection Throat Exam: Normal Inspection - Neck Neck Exam: Trachea Midline - Chest Chest Inspection: Symmetric Chest Wall Rise - Respiratory Respiratory Exam: Normal Lung Sounds Bilat Respiratory Exam: Bilateral Clear to Auscultation - Cardiovascular Cardiovascular Exam: Regular Rate, Normal Rhythm, Normal Heart Sounds - Abdominal Exam Abdominal Exam: Normal Bowel Sounds, Soft. negative: Tenderness - Extremities Extremities Exam: Tenderness (RIGHT FOREARM RED, TENDER WITH STREKING.) - Back Back Exam: Normal Inspection - Neurologic Neurological Exam: Alert, Oriented X3 - Psychiatric Psychiatric Exam: Normal Affect, Normal Mood - Skin Skin Exam: Normal Color, Erythema MDM - Differential Diagnosis Differential Diagnosis: CELLULITIS, DVT, CONTUSION Course - Treatment Treatment: SEE ORDERS - Education/Counseling Education/Counseling: Patient, Education Educated On: Treatment, Diagnosis, Needs for Follow Up ROR - Labs Reviewed Laboratory Results Reviewed?: Yes Result Diagrams: 12/01/17 15:25 Laboratory: WBC 6.6 X10^3/uL (3.6-10.0) 12/01/17 15:25 RBC 4.62 X10^6/uL (3.5-5.4) 12/01/17 15:25 Hgb 13.6 g/dL (12.0-16.0) 12/01/17 15:25 Hct 40.5 % (36.0-47.0) 12/01/17 15:25 MCV 87.7 fL (80.0-100.0) 12/01/17 15:25 MCH 29.4 pg (27.0-34.0) 12/01/17 15:25 MCHC 33.5 g/dL (33.0-35.0) 12/01/17 15:25 RDW 13.7 % (11.6-16.5) 12/01/17 15:25 Plt Count 308 X10^3/uL (150.0-450.0) 12/01/17 15:25 MPV 7.3 fL (7.4-11.0) L 12/01/17 15:25 Neut % 55.2 % (42.0-75.0) 12/01/17 15:25 Lymph % 34.1 % (21.0-51.0) 12/01/17 15:25 [place] % 8.8 % (0.0-13.0) 12/01/17 15:25 Eos % 1.3 % (0.9-2.9) 12/01/17 15:25 Baso % 0.6 % (0.2-1.0) 12/01/17 15:25 Neut # 3.6 x10^3/uL (2.2-4.8) 12/01/17 15:25 Lymph # 2.2 X10^3/uL (1.3-2.9) 12/01/17 15:25 [place] # 0.6 x10^3/uL (0.3-0.8) 12/01/17 15:25 Eos # 0.1 x10^3/uL (0.0-0.2) 12/01/17 15:25 Baso # 0.0 X10^3/uL (0.0-0.1) 12/01/17 15:25 Absolute Nucleated RBC 0.0 /100WBC 12/01/17 15:25 D-Dimer < 100 ng/mL (0-400) 12/01/17 15:25 C-Reactive Protein 1.50 mg/L (0-3.0) 12/01/17 15:25 - XRAY XRAY Interpreted by: Radiologist XRAY Findings: REPORT DISCUSS WITH PATIENT. - Diagnosis Discharge Problem: Cellulitis Qualifiers: Site of cellulitis: extremity Site of cellulitis of extremity: upper extremity Laterality: right Qualified Code(s): L03.113 - Cellulitis of right upper limb - Discharge Plan Disposition: HOME, SELF-CARE Condition: Stable Prescriptions: Ibuprofen [MOTRIN TAB 600 MG *] 600 mg PO TID PRN #20 tab PRN Reason: Pain/Inflammation Sulfamethoxazole-Trimethoprim [BACTRIM DS TAB 800/160 MG *] 1 tab PO BID #20 tab Tramadol HCl 50 mg PO Q8H PRN #15 tablet PRN Reason: - Follow ups/Referrals Follow ups/Referrals: JOCELINE RICKS [Primary Care Provider] - 3 days - Instructions Instructions: Cellulitis, Adult, [id number] Additional Instructions: RETURN TO ED IF WORSE.
[2017-12-01 15:42] LABS: BASOPHILS % (AUTO) 0.6 % (0.2-1.0); EOSINOPHILS # (AUTO) 0.1 x10^3/uL (0.0-0.2); EOSINOPHILS % (AUTO) 1.3 % (0.9-2.9); HEMATOCRIT 40.5 % (36.0-47.0); HEMOGLOBIN 13.6 g/dL (12.0-16.0); LYMPHOCYTES # (AUTO) 2.2 X10^3/uL (1.3-2.9); LYMPHOCYTES % (AUTO) 34.1 % (21.0-51.0); MEAN CORPUSCULAR HEMOGLOBIN 29.4 pg (27.0-34.0); MEAN CORPUSCULAR HGB CONC 33.5 g/dL (33.0-35.0); MEAN CORPUSCULAR VOLUME 87.7 fL (80.0-100.0); MEAN PLATELET VOLUME 7.3 fL (7.4-11.0); MONOCYTES # (AUTO) 0.6 x10^3/uL (0.3-0.8); MONOCYTES % (AUTO) 8.8 % (0.0-13.0); NEUTROPHILS # (AUTO) 3.6 x10^3/uL (2.2-4.8); NEUTROPHILS % (AUTO) 55.2 % (42.0-75.0); PLATELET COUNT 308 X10^3/uL (150.0-450.0); RED BLOOD COUNT 4.62 X10^6/uL (3.5-5.4); RED CELL DISTRIBUTION WIDTH 13.7 % (11.6-16.5); WHITE BLOOD COUNT 6.6 X10^3/uL (3.6-10.0)
--- NOTE | 2017-12-01 15:43 | RAD ---
Examination: Right forearm, two views History: Swelling around wrist Findings: Normal appearance of radius and ulna. No fracture demonstrated. There is mild apparent soft tissue swelling involving the forearm. No bone destruction or soft tissue calcification is noted. Impression: Nonspecific soft tissue swelling, no osseous abnormality noted. Reported By:
[2017-12-01] MEDS ORDERED: TORADOL 60 MG VIAL IM ONE (16:25)
[2017-12-01] MEDS ORDERED: TORADOL 60 MG VIAL ONE ×2 (16:26→16:31)
== END 2017-12-01 17:12 | disposition home or self-care (01) ==
LOC: ER 14:45
DX: L03.113 Cellulitis of right upper limb (principal)
CPT/HCPCS: 36415; 73090; 85025; 85378; 86140; 96372; 99282; J1885

== ENCOUNTER 2018-01-10 15:58 | Emergency (ER) | payer OTHER ==
[2018-01-10 16:02] VITALS: BMI 28.1
--- NOTE | 2018-01-10 16:15 | DR.CP ---
HPI - Time Seen Time seen: 16:05 - PCP Primary Care Physician: KELTON FLORES - Complaint Chief Complaint:: PT. C/O CHEST PAIN THAT BEGAN 2 DAYS AGO BUT WENT AWAY. PAIN BEGAN AGAIN TODAY. PT. DESCRIBES IT PRESSURE AND HAS HAD SHORTNESS OF BREATH AND NAUSEA. PT. ALSO STATES SHE SCRATCHED BOTH OF HER THIGHS AND NOTICED BRUISING AFTER SCRATCHING. - Reviewed Nurses Notes Review: Yes - Source History Provided: Patient - Mode of Arrival Mode of Arrival: Ambulatory - Timing Onset of Chief Complaint: 01/08/18 Came on: Suddenly - Duration Duration: Intermittent How lon Duration: Days - Location Location of Chest Pain: Chest - Context History of: Similar pain in the past Prehospital Care: None - Quality Quality: Sharp - Severity Severity: Moderate - Modifying Factors Worsens: Nothing - Associated Signs and Symptoms Associated Signs and Symptoms: Other (pt noted easy bruising with scratching 2 days ago, large bruises on both thighs from this, pt states this is new for her) PMH - PMH Past Medical History: Yes Past Medical History: Anxiety, Dementia, Migraines, GERD, Headaches, Hypertension, Kidney Stones Past Medical History Comment: no known hx CAD Past Surgical History: Yes 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, 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, Other - Family History History of Family Medical Conditions: Yes Family Medical History: Diabetes Mellitus, Cancer, [place], Coronary Artery Disease, Heart Failure, Hypertension - Social History Does patient currently use any type of tobacco product: Yes Have you used tobacco products in the last 12 months: Yes Type of Tobacco Use: None Does any household member use tobacco: No Alcohol Use: None Do you use any recreational Drugs:: No Lives With: Family Lives Where: Home - infectious screening In the last 2 months have you had wt loss of >10#?: NO Have you had fever, night sweats or hemotysis?: No Have you traveled outside the country in the last 6 months?: No Isolation: Standard ROS - Review of Systems Constitutional: Fatigue Eyes: No Symptoms Reported ENTM: No Symptoms Reported Respiratoy: No Symptoms Reported Cardiovascular: Chest Pain Gastrointestinal/Abdominal: No Symptoms Reported Genitourinary: No Symptoms Reported Neurological: No Symptoms Reported Musculoskeletal: No Symptoms Reported Integumentary: Bruises, Other (easy bruising after scratching) Hematologic/Lymphatic: Easy Bruising Endocrine: No Symptoms Reported Psychiatric: No Symptoms Reported All Other Systems: Reviewed and Negative PE - Vitals Vitals: Temperature 98.0 F Pulse Rate [Apical] 96 Pulse Rate 95 Respiratory Rate 20 Blood Pressure [Right Arm] 116/67 Blood Pressure [Left Arm] 90/55 Blood Pressure [Standing] 94/64 Blood Pressure [Sitting] 85/65 Blood Pressure [Lying] 104/60 Blood Pressure 98/61 O2 Sat by Pulse Oximetry 99 - General Limitations: No Limitations General Appearance: Alert, In No Apparent Distress, Anxious - Head Head Exam: Normal Inspection, Atraumatic, Normocephalic - Eyes Eye exam: Normal Appearance - ENT ENT Exam: Normal Exam, Normal Oropharynx - Chest Chest Inspection: Normal Inspection, Symmetric Chest Wall Rise - Respiratory Respiratory Exam: Normal Lung Sounds Bilat Respiratory Exam: Bilateral Clear to Auscultation - Cardiovascular Cardiovascular Exam: Regular Rate, Normal Rhythm. negative: Systolic Murmur, Diastolic Murmur Pulse: Normal Edema: Normal - Abdominal Exam Abdominal Exam: Normal Inspection, Normal Bowel Sounds, Soft. negative: Tenderness - Neurologic Neurological Exam: Alert, Oriented X3 - Psychiatric Psychiatric Exam: Anxious - Skin Skin Exam: Warm, Intact, Other (large bruises both lateral thighs) ROR - Labs Reviewed Laboratory Results Reviewed?: Yes (ESR normal) Result Diagrams: 01/10/18 16:24 01/10/18 16:24 Laboratory: WBC 7.4 X10^3/uL (3.6-10.0) 01/10/18 16:24 RBC 4.85 X10^6/uL (3.5-5.4) 01/10/18 16:24 Hgb 14.6 g/dL (12.0-16.0) 01/10/18 16:24 Hct 41.8 % (36.0-47.0) 01/10/18 16:24 MCV 86.2 fL (80.0-100.0) 01/10/18 16:24 MCH 30.1 pg (27.0-34.0) 01/10/18 16:24 MCHC 34.9 g/dL (33.0-35.0) 01/10/18 16:24 RDW 13.0 % (11.6-16.5) 01/10/18 16:24 Plt Count 373 X10^3/uL (150.0-450.0) 01/10/18 16:24 MPV 6.9 fL (7.4-11.0) L 01/10/18 16:24 Neut % 56.2 % (42.0-75.0) 01/10/18 16:24 Lymph % 33.8 % (21.0-51.0) 01/10/18 16:24 [place] % 8.7 % (0.0-13.0) 01/10/18 16: Eos % 0.8 % (0.9-2.9) L 01/10/18 16:24 Baso % 0.5 % (0.2-1.0) 01/10/18 16:24 Neut # 4.1 x10^3/uL (2.2-4.8) 01/10/18 16: Lymph # 2.5 X10^3/uL (1.3-2.9) 01/10/18 16:24 [place] # 0.6 x10^3/uL (0.3-0.8) 01/10/18 16:24 Eos # 0.1 x10^3/uL (0.0-0.2) 01/10/18 16:24 Baso # 0.0 X10^3/uL (0.0-0.1) 01/10/18 16:24 Absolute Nucleated RBC 0.0 /100WBC 01/10/18 16:24 ESR 3 MM/HOUR (0-20) 01/10/18 16:24 INR Target Range - 01/10/18 16:24 INR 1.00 (0.8-1.3) 01/10/18 16:24 PTT 26.9 SECONDS (22.9-36.5) 01/10/18 16:24 PTT Comment - 01/10/18 16:24 D-Dimer < 100 ng/mL (0-400) 01/10/18 16:24 Sodium 140 mmol/L (136-145) 01/10/18 16:24 Corrected Sodium TNP 01/10/18 16:24 Potassium 3.6 mmol/L (3.5-5.1) 01/10/18 16:24 Chloride 103 mmol/L (98-107) 01/10/18 16:24 Carbon Dioxide 28.8 mmol/L (21-32) 01/10/18 16:24 BUN 12 mg/dL (7-18) 01/10/18 16:24 Creatinine 0.80 mg/dL (0.55-1.02) 01/10/18 16:24 Est GFR (MDRD) Af Amer > 60 (>60) 01/10/18 16:24 Est GFR (MDRD) Non-Af > 60 (>60) 01/10/18 16:24 Glucose 90 mg/dL (65-99) 01/10/18 16:24 Calcium 9.0 mg/dL (8.5-10.1) 01/10/18 16:24 Corrected Calcium TNP 01/10/18 16:24 Magnesium 1.9 mg/dL (1.7-2.9) 01/10/18 16:24 Total Bilirubin 0.20 mg/dL (0.2-1.0) 01/10/18 16:24 AST 9 Units/L (15-37) L 01/10/18 16:24 ALT 24 Units/L (12-78) 01/10/18 16:24 Alkaline Phosphatase 97 Units/L (46-116) 01/10/18 16:24 Creatine Kinase 35 Units/L (26-192) 01/10/18 16:24 CK-MB (CK-2) < 1.0 ng/mL (0-4.0) 01/10/18 16:24 CK/CKMB % Calc 2.9 % (<4) 01/10/18 16:24 Troponin I < 0.02 ng/mL (0-1.5) 01/10/18 16:24 Total Protein 7.3 g/dL (6.4-8.2) 01/10/18 16:24 Albumin 3.9 g/dL (3.4-5.0) 01/10/18 16:24 Globulin 3.4 g/dL (2.5-4.5) 01/10/18 16:24 Albumin/Globulin Ratio 1.1 Ratio (1.1-2.1) 01/10/18 16:24 - XRAY XRAY Interpreted by: Radiologist XRAY Findings: nothing acute - EKG Rate: 82 [place]: Normal Rhythm: NSR Block: None ST: Normal (normal EKG. Pt states she had RBBB before but not present today) Additional Notes - Additional Notes Additional Notes: pt to f/u PCP, thinks this may be related to stress, reassured with normal workup - Diagnosis Discharge Problem: Non-cardiac chest pain, Easy bruising - Discharge Plan Condition: Stable - Follow ups/Referrals Follow ups/Referrals: JOCELINE RICKS [Primary Care Provider] - 3 days - Instructions Instructions: Chest Pain Observation Additional Instructions: NON CARDIAC CHEST PAIN
[2018-01-10 16:33] LABS: BASOPHILS % (AUTO) 0.5 % (0.2-1.0); EOSINOPHILS # (AUTO) 0.1 x10^3/uL (0.0-0.2); EOSINOPHILS % (AUTO) 0.8 % (0.9-2.9); HEMATOCRIT 41.8 % (36.0-47.0); HEMOGLOBIN 14.6 g/dL (12.0-16.0); LYMPHOCYTES # (AUTO) 2.5 X10^3/uL (1.3-2.9); LYMPHOCYTES % (AUTO) 33.8 % (21.0-51.0); MEAN CORPUSCULAR HEMOGLOBIN 30.1 pg (27.0-34.0); MEAN CORPUSCULAR HGB CONC 34.9 g/dL (33.0-35.0); MEAN CORPUSCULAR VOLUME 86.2 fL (80.0-100.0); MEAN PLATELET VOLUME 6.9 fL (7.4-11.0); MONOCYTES # (AUTO) 0.6 x10^3/uL (0.3-0.8); MONOCYTES % (AUTO) 8.7 % (0.0-13.0); NEUTROPHILS # (AUTO) 4.1 x10^3/uL (2.2-4.8); NEUTROPHILS % (AUTO) 56.2 % (42.0-75.0); PLATELET COUNT 373 X10^3/uL (150.0-450.0); RED BLOOD COUNT 4.85 X10^6/uL (3.5-5.4); WHITE BLOOD COUNT 7.4 X10^3/uL (3.6-10.0)
--- NOTE | 2018-01-10 16:47 | RAD ---
AP Chest Indication: Chest pain Comparison: 08/23/2017 Findings: The trachea is midline. The cardiac silhouette is unremarkable. The lungs are clear without focal i nfiltrate or effusion. The bony thorax is unremarkable. IMPRESSION: 1. No acute cardiopulmonary abnormality. Reported By:
[2018-01-10 16:53] LABS: ALANINE AMINOTRANSFERASE 24 Units/L (12-78); ALBUMIN 3.9 g/dL (3.4-5.0); ALKALINE PHOSPHATASE 97 Units/L (46-116); ASPARTATE AMINO TRANSFERASE 9 Units/L (15-37); BLOOD UREA NITROGEN 12 mg/dL (7-18); CARBON DIOXIDE 28.8 mmol/L (21-32); CHLORIDE 103 mmol/L (98-107); CKMB % 2.9 % (<4); CREATINE KINASE 35 Units/L (26-192); CREATINE KINASE MB < 1.0 ng/mL (0-4.0); MAGNESIUM 1.9 mg/dL (1.7-2.9); SODIUM 140 mmol/L (136-145); TOTAL PROTEIN 7.3 g/dL (6.4-8.2); TROPONIN I < 0.02 ng/mL (0-1.5); eGFR BLACK RACES > 60 (>60); eGFR NON BLACK RACES > 60 (>60)
[2018-01-10 17:09] VITALS: BP 90/55
[2018-01-10 17:29] LABS: ERYTHROCYTE SEDIMENTATION RATE 3 MM/HOUR (0-20)
== END 2018-01-10 17:32 | disposition home or self-care (01) ==
LOC: ER 16:05
DX: R07.89 Other chest pain (principal)
CPT/HCPCS: 36415; 71045; 80053; 82550; 82553; 83735; 84484; 85025; 85378; 85610; 85652; 85730; 93005; 93010; 99282; 99283